=== PATIENT | female | born 1960 | race Caucasian/White ===

== ENCOUNTER → 2017-10-04 | Outpatient (CLI) | payer BC | LOC: MC.RAD 13:40 | DX: Z12.31 Encounter for screening mammogram for malignant neoplasm of breast (principal) ==

== ENCOUNTER → 2018-10-16 | Outpatient (CLI) | payer BC | LOC: MC.RAD 13:08 | DX: Z12.31 Encounter for screening mammogram for malignant neoplasm of breast (principal) ==

== ENCOUNTER → 2018-10-22 | Outpatient (REF) | LOC: ZLAB.WCH 17:10 | DX: Z01.89 Encounter for other specified special examinations (principal) ==

== ENCOUNTER → 2019-10-23 | Outpatient (CLI) | payer BC | LOC: MC.RAD 14:08 | DX: Z12.31 Encounter for screening mammogram for malignant neoplasm of breast (principal) ==

== ENCOUNTER → 2020-12-09 | Outpatient (CLI) | payer BC | LOC: MC.RAD 08:44 | DX: Z12.31 Encounter for screening mammogram for malignant neoplasm of breast (principal); N63.20 Unspecified lump in the left breast, unspecified quadrant ==

== ENCOUNTER → 2020-12-16 | Outpatient (CLI) | payer BC | LOC: MC.RAD 08:27 | DX: N60.02 Solitary cyst of left breast (principal) ==

== ENCOUNTER → 2022-01-19 | Outpatient (CLI) | payer BC | LOC: MC.RAD 11:24 | DX: Z12.31 Encounter for screening mammogram for malignant neoplasm of breast (principal) ==

== ENCOUNTER → 2024-02-13 | Outpatient (CLI) | payer BC | LOC: MC.RAD 07:29 | DX: Z12.31 Encounter for screening mammogram for malignant neoplasm of breast (principal) ==